=== PATIENT | female | born 1945 | race Hispanic/Latino ===

== ENCOUNTER 2021-05-23 14:31 | Emergency (ER) | payer OTHER ==
[2021-05-23] MEDS ORDERED: Morphine 4 MG/ML VIAL ONE (15:58)
[2021-05-23] MEDS ORDERED: Ondansetron ODT 4 MG TAB ONE (15:59)
== END 2021-05-23 16:58 | disposition home or self-care (01) ==
LOC: MADERS 14:31
DX: S42.201A Unspecified fracture of upper end of right humerus, initial encounter for closed fracture (principal); S52.502A Unspecified fracture of the lower end of left radius, initial encounter for closed fracture; S52.602A Unspecified fracture of lower end of left ulna, initial encounter for closed fracture; S00.03XA Contusion of scalp, initial encounter; E11.9 Type 2 diabetes mellitus without complications; K21.9 Gastro-esophageal reflux disease without esophagitis; E78.5 Hyperlipidemia, unspecified; I10 Essential (primary) hypertension; W18.31XA Fall on same level due to stepping on an object, initial encounter
CPT/HCPCS: 29105; 70450; 96372; J2270; Q0162